=== PATIENT | male | born 1965 | race Hispanic/Latino ===

== ENCOUNTER 2016-12-31 21:29 | Emergency (ER) | payer MEDICARE ==
[2016-12-31 21:39] VITALS: BP 152/105
[2016-12-31 22:03] LABS: Basophils % (Auto) 0.4 % (0.0-1.8); Eosinophils % (Auto) 0.4 % (0.0-4.3); Hematocrit 40.8 % (35.5-45.6); Hemoglobin 13.8 gm/dl (11.8-15.2); Mean Corpuscular HGB Conc 34 % (32-34); Mean Corpuscular Hemoglobin 32 pg (28-32); Mean Corpuscular Volume 95 fl (84-94); Platelet Count 261 K/mm3 (140-440); Red Blood Count 4.31 M/mm3 (3.65-5.03); Red Cell Distribution Width 13.3 % (13.2-15.2); White Blood Count 8.5 K/mm3 (4.5-11.0)
[2016-12-31 22:20] LABS: Anion Gap 17 mmol/L; Blood Urea Nitrogen 12 mg/dL (9-20); Calcium 8.9 mg/dL (8.4-10.2); Carbon Dioxide 26 mmol/L (22-30); Chloride 102.4 mmol/L (98-107); Glucose 106 mg/dL (75-100); Potassium 3.8 mmol/L (3.6-5.0); Sodium 142 mmol/L (137-145)
== END 2016-12-31 22:00 | disposition left against medical advice (07) ==
LOC: ED 21:29
DX: R07.89 Other chest pain (principal); Z53.21 Procedure and treatment not carried out due to patient leaving prior to being seen by health care provider
CPT/HCPCS: 36415; 80048; 84484; 85025; 93005; 93010

== ENCOUNTER 2022-04-13 20:19 | Emergency (ER) | payer MEDICARE ==
[2022-04-13 21:34] LABS: Basophils % (Auto) 0.4 % (0.0-1.8); Eosinophils # (Auto) 0.2 K/mm3 (0.0-0.4); Eosinophils % (Auto) 2.1 % (0.0-4.3); Hematocrit 42.9 % (35.5-45.6); Hemoglobin 14.7 gm/dl (11.8-15.2); Lymphocytes # (Auto) 2.1 K/mm3 (1.2-5.4); Lymphocytes % (Auto) 23.8 % (13.4-35.0); Mean Corpuscular HGB Conc 34 % (32-34); Mean Corpuscular Volume 95 fl (84-94); Monocytes # (Auto) 0.8 K/mm3 (0.0-0.8); Monocytes % (Auto) 8.7 % (0.0-7.3); Platelet Count 254 K/mm3 (140-440); Red Blood Count 4.49 M/mm3 (3.65-5.03); Red Cell Distribution Width 13.3 % (13.2-15.2)
[2022-04-13 21:42] LABS: Blood Urea Nitrogen 10 mg/dL (9-20); Calcium 8.7 mg/dL (8.4-10.2); Hemolysis Index 10
[2022-04-13 21:52] LABS: BUN/Creatinine Ratio 17
--- NOTE | 2022-04-14 04:02 | Emergency Department Report ---
ED Psych HPI - General Chief Complaint: Psych Stated Complaint: MH Time Seen by Provider: 04/14/22 03:59 Source: patient Mode of arrival: Ambulatory - History of Present Illness Initial Comments: I WAS GOING TO COMMIT SUICIDE TONIGHT BUT I CALLED THE POLICE INSTEAD." PT REPORTS PLAN TO TAKE OD OR HANGING HIMSELF, STATES LAST ATTEMPT 5 YEARS AGO. SI+, -HI. STATES HALLUCINATIONS. PT C/A/O, RESP UNLAB, SKIN EXPECTED COLOR WDI, SCARS NOTED TO BILATERAL ARMS. PT AMB INTO TRIAGE MD Complaint: suicidal ideation, feels depressed -: days(s) Associated Psychiatric Symptoms: depression, suicidal ideation History of same: Yes Quality: constant Improves With: none Worsens With: none Context: recent drug abuse Associated Symptoms: denies: denies other symptoms, confusion, headache Treatments Prior to Arrival: placed on mental he If Self Harm: admits thoughts of, has plan - Related Data Allergies Allergy/AdvReac Type Severity Reaction Status Date / Time divalproex sodium Allergy Unknown Verified 04/13/22 21:08 [From [facility]] ED Review of Systems ROS: Stated complaint: MH Other details as noted in HPI Comment: Unobtainable due to pts medical conditions ED Past Medical Hx - Past Medical History Previous Medical History?: Yes Hx Psychiatric Treatment: Yes (bipolar, depression,PTSD) - Surgical History Past Surgical History?: No Additional Surgical History: inflated lung - Social History Smoking Status: Current Every Day Smoker ED Physical Exam - General Limitations: No Limitations General appearance: alert, anxious - Head Head exam: Present: atraumatic, normocephalic - Eye Eye exam: Present: normal appearance - ENT ENT exam: Present: mucous membranes moist - Neck Neck exam: Present: normal inspection - Respiratory Respiratory exam: Present: normal lung sounds bilaterally. Absent: respiratory distress - Cardiovascular Cardiovascular Exam: Present: regular rate, normal rhythm. Absent: systolic murmur, diastolic murmur, rubs, gallop - GI/Abdominal GI/Abdominal exam: Present: soft, normal bowel sounds - Rectal Rectal exam: Present: deferred - Extremities Exam Extremities exam: Present: normal inspection - Back Exam Back exam: Present: normal inspection - Neurological Exam Neurological exam: Present: alert, oriented X3 - Psychiatric Psychiatric exam: Present: depressed, anxious, suicidal ideation - Skin Skin exam: Present: warm, dry, intact, normal color. Absent: rash ED Course Vital Signs 04/13/22 04/14/22 04/14/22 20:51 08:16 14:00 Temperature 97.9 F 97.7 F Pulse Rate 80 58 L 60 Respiratory 18 18 18 Rate Blood Pressure 144/81 Blood Pressure 137/77 141/80 [Left] O2 Sat by Pulse 96 99 Oximetry ED Medical Decision Making - Lab Data Result diagrams: 04/13/22 21:08 04/13/22 21:08 Critical care attestation.: If time is entered above; I have spent that time in minutes in the direct care of this critically ill patient, excluding procedure time. ED Disposition Clinical Impression: Suicidal ideation Disposition: 30 STILL A PATIENT Is pt being admited?: No Does the pt Need Aspirin: No Condition: Stable Additional Instructions: OUTPATIENT MENTAL HEALTH RESOURCES [employer], [facility] Loreta Adams MD: [address] [place] [address] [place] [address] [facility]: [facility] [facility] [address] [place] [address] [place] [address] [phone] [facility]: [facility] Healthcare: [address] [facility] [address] [place] [address] [place] [address] [facility] [id number] [facility]: Dejuan Amin MD: [address] [facility] [id number] [facility]: [address] [place], [place] [id number] [phone] [place] CRISIS AND ACCESS LINE: Referrals: BLANCA VILLARREAL MD [Primary Care Provider] - 3-5 Days
[2022-04-14 04:18] LABS: Bacteria,Urine 1+ /HPF (Negative); Mucus,Urine 3+ /HPF
[2022-04-14 04:23] LABS: Amphetamine Screen,Urine Negative; Benzodiazepines Screen,Urine Negative; Cannabinoid Screen,Urine Negative; Methadone Screen,Urine Negative; Opiate Screen,Urine Negative
[2022-04-14 04:25] LABS: Color,Urine Yellow (Yellow)
[2022-04-14 04:45] LABS: Cocaine Screen,Urine Positive
--- NOTE | 2022-04-14 10:34 | Consultation ---
History of Present Illness - Reason for Consult Consult date: 04/14/22 Reason for consult: SI, drug use - History of Present Psychiatric Illness HPI: I WAS GOING TO COMMIT SUICIDE TONIGHT BUT I CALLED THE POLICE INSTEAD." PT REPORTS PLAN TO TAKE OD OR HANGING HIMSELF, STATES LAST ATTEMPT 5 YEARS AGO. SI+, -HI. STATES HALLUCINATIONS. PT C/A/O, RESP UNLAB, SKIN EXPECTED COLOR WDI, SCARS NOTED TO BILATERAL ARMS. PT AMB INTO TRIAGE The patient was seen today. He is irritable and talking loudly. He says he tried to hang himself. The patient says he needs rehab for crack, cocaine and meth. He says he doesn't want to talk to his family. I ask the patient why, he says "because I just don't." The patient reports being homeless, and feeling hopeless. He says "I'm just tired of everything." He denies hallucinations of any kind. PAST PSYCHIATRIC HISTORY: Diagnoses: Bipolar Disorder, PTSD, Schizoaffective Disorder Suicide attempts or Self-harm behavior: Yes Prior psychiatric hospitalizations: Yes Substance Abuse history: "meth, crack, cocaine" Previous psychiatric medications tried: denies being on any meds Outpatient treatment: Denies PAST MEDICAL HISTORY: None reported Family Psychiatric History: None reported or documented SOCIAL HISTORY Marital Status: Living Arrangements: homeless Employment Status: Unemployed Access to guns/weapons: Denies Education: History of Abuse:Denies Legal History: Denies REVIEW OF SYSTEMS Constitutional: Negative for weight loss ENT: Negative for stridor Respiratory: Negative for cough or hemoptysis All other systems reviewed and are negative MENTAL STATUS EXAMINATION General Appearance and Behavior: Age appropriate, wearing appropriate clothes, cooperative, polite with questioning, good eye contact Cooperation: cooperative Psychomotor Behavior: Psychomotor normal Mood: irritable, depressed Affect and affective range: congruent with stated affect Thought Process: goal directed Thought Content: None Speech: Normal volume, Regular rate and rhythm Suicidal Ideation: Yes Homicidal Ideation: Denies Hallucination: Denies Delusions: None elicited Impulse Control: Impaired Insight and Judgment: Limited Memory: Intact Attention: attentive Orientation: Alert and oriented Diagnoses: Bipolar Disorder Treatment Plan 1013 Lamictal 25mg po BID Risperidone 0.25mg po BID Trazodone 50mg po qhs Medical: Per primary Sitter: defer to primary Disposition: Recommend acute psychiatric inpatient treatment Will follow. Thanks Case staffed with Dr. Cabrera Medications and Allergies Allergies Allergy/AdvReac Type Severity Reaction Status Date / Time divalproex sodium Allergy Unknown Verified 04/13/22 21:08 [From [facility]] Mental Status Exam - Vital signs Last Vital Signs Temp 97.7 F 04/14/22 08:16 Pulse 58 L 04/14/22 08:16 Resp 18 04/14/22 08:16 BP 137/77 04/14/22 08:16 Pulse Ox 96 04/13/22 20:51 Results Result Diagrams: 04/13/22 21:08 04/13/22 21:08 Abnormal lab results 04/13/22 04/13/22 04/13/22 Range/Units 21:08 21:08 21:08 MCV (84-94) fl MCH (28-32) pg Noble % (Auto) (0.0-7.3) % Potassium 3.4 L (3.6-5.0) mmol/L Creatinine 0.6 L (0.8-1.3) mg/dL Glucose 184 H (75-100) mg/dL Salicylates < 0.3 L (2.8-20.0) mg/dL Acetaminophen 5.0 L (10.0-30.0) ug/mL 04/13/22 Range/Units 21:08 MCV 95 H (84-94) fl MCH 33 H (28-32) pg Noble % (Auto) 8.7 H (0.0-7.3) % Potassium (3.6-5.0) mmol/L Creatinine (0.8-1.3) mg/dL Glucose (75-100) mg/dL Salicylates (2.8-20.0) mg/dL Acetaminophen (10.0-30.0) ug/mL All other labs normal.
[2022-04-14] MEDS: lamoTRIgine 25 MG TAB PO SCH ×2 (16:19→22:35)
[2022-04-14] MEDS: risperiDONE 0.25 MG TAB PO SCH ×2 (16:20→22:35)
[2022-04-14] MEDS ORDERED: traZODone 50 MG TAB PO SCH (22:00)
--- NOTE | 2022-04-15 06:54 | Event Note ---
Date: 04/15/22 Patient is a 56-year-old male presenting with suicidal ideations. He is currently on a 1013 psychiatric hold. There were no acute events overnight.
--- NOTE | 2022-04-15 09:37 | Progress Note ---
Subjective - Reason for Consult Consult date: 04/15/22 Reason for consult: depression, substance abuse - Chief Complaint Chief complaint: The patient was seen today. He is asking to be sent to a treatment center. The patient initially says "I don't know" 'when asked about suicidal thoughts. He then says "I'd rather be ." He also says "I don't know" when asked about any hallucinations. The patient says "I just don't feel good at all." REVIEW OF SYSTEMS Constitutional: Negative for weight loss ENT: Negative for stridor Respiratory: Negative for cough or hemoptysis All other systems reviewed and are negative MENTAL STATUS EXAMINATION General Appearance and Behavior: Age appropriate, wearing appropriate clothes, cooperative, polite with questioning, good eye contact Cooperation: cooperative Psychomotor Behavior: Psychomotor normal Mood: irritable, depressed Affect and affective range: congruent with stated affect Thought Process: goal directed Thought Content: None Speech: Normal volume, Regular rate and rhythm Suicidal Ideation: Yes Homicidal Ideation: Denies Hallucination: "I don't know" Delusions: None elicited Impulse Control: Impaired Insight and Judgment: Limited Memory: Intact Attention: attentive Orientation: Alert and oriented Diagnoses: Bipolar Disorder Cocaine Use Disorder Treatment Plan 1013 Lamictal 25mg po BID Start Zoloft 25mg po daily Increase Risperidone 0.5mg po BID Increase Trazodone 75mg po qhs Medical: Per primary Sitter: defer to primary Disposition: Recommend acute psychiatric inpatient treatment Will follow. Thanks Case staffed with Dr. Cabrera Mental Status Exam - Vital signs Last Vital Signs Temp 97.9 F 04/14/22 20:35 Pulse 50 L 04/14/22 20:35 Resp 16 04/14/22 20:35 BP 122/66 04/14/22 20:35 Pulse Ox 94 04/14/22 20:35
[2022-04-15] MEDS: SERTRALINE 25 MG TAB PO SCH (09:52)
[2022-04-15] MEDS: risperiDONE 0.25 MG TAB PO SCH ×2 (09:52→22:00)
[2022-04-15] MEDS: lamoTRIgine 25 MG TAB PO SCH ×2 (09:52→22:00)
[2022-04-15] MEDS: traZODone 50 MG TAB PO SCH (22:00)
--- NOTE | 2022-04-16 06:22 | Event Note ---
Date: 04/16/22 Patient had no acute events overnight. He denies any complaints this morning. He remains on 1013 hold.
--- NOTE | 2022-04-16 09:23 | Progress Note ---
Subjective - Reason for Consult Consult date: 04/16/22 Reason for consult: depression, substance abuse - Chief Complaint Chief complaint: The patient was seen today. He says he feels a little better. The patient says "but I'm still suicidal, and wanted to hand myself." He says he's very depressed. He denies hallucinations. REVIEW OF SYSTEMS Constitutional: Negative for weight loss ENT: Negative for stridor Respiratory: Negative for cough or hemoptysis All other systems reviewed and are negative MENTAL STATUS EXAMINATION General Appearance and Behavior: Age appropriate, wearing appropriate clothes, cooperative, polite with questioning, good eye contact Cooperation: cooperative Psychomotor Behavior: Psychomotor normal Mood: depressed Affect and affective range: congruent with stated affect Thought Process: goal directed Thought Content: hopelessness Speech: Normal volume, Regular rate and rhythm Suicidal Ideation: Yes Homicidal Ideation: Denies Hallucination: "I don't know" Delusions: None elicited Impulse Control: Impaired Insight and Judgment: Limited Memory: Intact Attention: attentive Orientation: Alert and oriented Diagnoses: Bipolar Disorder Cocaine Use Disorder Treatment Plan 1013 Increase Lamictal 50mg po BID Zoloft 25mg po daily Risperidone 0.5mg po BID Trazodone 75mg po qhs Medical: Per primary Sitter: defer to primary Disposition: Recommend acute psychiatric inpatient treatment Will follow. Thanks Case staffed with Dr. Cabrera Mental Status Exam - Vital signs Last Vital Signs Temp 97.4 F L 04/16/22 07:30 Pulse 59 L 04/16/22 07:30 Resp 18 04/16/22 07:30 BP 109/61 04/16/22 07:30 Pulse Ox 96 04/16/22 07:31
[2022-04-16] MEDS: lamoTRIgine 25 MG TAB PO SCH ×2 (10:14→22:00)
[2022-04-16] MEDS: risperiDONE 0.25 MG TAB PO SCH ×2 (10:14→22:00)
[2022-04-16] MEDS: SERTRALINE 25 MG TAB PO SCH (10:14)
[2022-04-16] MEDS: traZODone 50 MG TAB PO SCH (22:00)
[2022-04-17] MEDS: lamoTRIgine 25 MG TAB PO SCH (10:52)
[2022-04-17] MEDS: risperiDONE 0.25 MG TAB PO SCH (10:52)
[2022-04-17] MEDS: SERTRALINE 25 MG TAB PO SCH (10:52)
--- NOTE | 2022-04-17 11:00 | Progress Note ---
Subjective - Reason for Consult Consult date: 04/17/22 Reason for consult: depression - Chief Complaint Chief complaint: The patient was seen today. He still endorses depression and suicidal thoughts. He denies a plan. REVIEW OF SYSTEMS Constitutional: Negative for weight loss ENT: Negative for stridor Respiratory: Negative for cough or hemoptysis All other systems reviewed and are negative MENTAL STATUS EXAMINATION General Appearance and Behavior: Age appropriate, wearing appropriate clothes, cooperative, polite with questioning, good eye contact Cooperation: cooperative Psychomotor Behavior: Psychomotor normal Mood: depressed Affect and affective range: congruent with stated affect Thought Process: goal directed Thought Content: hopelessness Speech: Normal volume, Regular rate and rhythm Suicidal Ideation: Yes Homicidal Ideation: Denies Hallucination: "I don't know" Delusions: None elicited Impulse Control: Impaired Insight and Judgment: Limited Memory: Intact Attention: attentive Orientation: Alert and oriented Diagnoses: Bipolar Disorder Cocaine Use Disorder Treatment Plan 1013 Lamictal 50mg po BID Zoloft 25mg po daily Risperidone 0.5mg po BID Trazodone 75mg po qhs Medical: Per primary Sitter: defer to primary Disposition: Recommend acute psychiatric inpatient treatment Will follow. Thanks Case staffed with Dr. Cabrera Mental Status Exam - Vital signs Last Vital Signs Temp 98.2 F 04/17/22 10:52 Pulse 72 04/17/22 10:52 Resp 13 04/17/22 10:52 BP 159/81 04/17/22 10:52 Pulse Ox 99 04/17/22 10:52
--- NOTE | 2022-04-17 12:04 | Event Note ---
Date: 04/17/22 vss , no events overnight , medically cleared , assessed by psych , awaiting placement
[2022-04-18] MEDS: lamoTRIgine 25 MG TAB PO SCH ×3 (04:38→21:54)
[2022-04-18] MEDS: risperiDONE 0.25 MG TAB PO SCH ×3 (04:38→21:54)
[2022-04-18] MEDS: traZODone 50 MG TAB PO SCH ×2 (04:38→21:54)
[2022-04-18] MEDS: SERTRALINE 25 MG TAB PO SCH (10:28)
--- NOTE | 2022-04-18 10:30 | Progress Note ---
Subjective - Reason for Consult Consult date: 04/18/22 Reason for consult: SI - Chief Complaint Chief complaint: The patient was seen today. He says he's not doing well at all, and states that he "feels the same." He still endorses depression and suicidal thoughts. The patient says he plans to hang himself when he's discharged. REVIEW OF SYSTEMS Constitutional: Negative for weight loss ENT: Negative for stridor Respiratory: Negative for cough or hemoptysis All other systems reviewed and are negative MENTAL STATUS EXAMINATION General Appearance and Behavior: Age appropriate, wearing appropriate clothes, cooperative, polite with questioning, good eye contact Cooperation: cooperative Psychomotor Behavior: Psychomotor normal Mood: depressed Affect and affective range: congruent with stated affect Thought Process: goal directed Thought Content: hopelessness Speech: Normal volume, Regular rate and rhythm Suicidal Ideation: Yes Homicidal Ideation: Denies Hallucination: Denies Delusions: None elicited Impulse Control: Impaired Insight and Judgment: Limited Memory: Intact Attention: attentive Orientation: Alert and oriented Diagnoses: Bipolar Disorder Cocaine Use Disorder Treatment Plan 1013 Start Klonopin 0.5mg po BID Lamictal 50mg po BID Increase Zoloft 50mg po daily Risperidone 0.5mg po BID Trazodone 75mg po qhs Medical: Per primary Sitter: defer to primary Disposition: Recommend acute psychiatric inpatient treatment Will follow. Thanks Case staffed with Dr. Cabrera Mental Status Exam - Vital signs Last Vital Signs Temp 97.5 F L 04/18/22 07:59 Pulse 60 04/18/22 07:59 Resp 18 04/18/22 07:59 BP 114/75 04/18/22 07:59 Pulse Ox 94 04/18/22 07:59
[2022-04-18] MEDS: SERTRALINE 50 MG TAB PO SCH (11:08)
[2022-04-18] MEDS: clonazePAM 0.5 MG TAB PO SCH ×2 (11:10→21:54)
--- NOTE | 2022-04-18 13:30 | Event Note ---
Date: 04/18/22 REMAINS HEMODYNAMICALLY STABLE AND AFEBRILE. PENDING INPATIENT PSYCH PLACEMENT. CONTINUE ALL MEDICATIONS RECOMMENDED BY BEHAVIOR HEALTH.
--- NOTE | 2022-04-19 09:33 | Progress Note ---
Subjective - Reason for Consult Consult date: 04/19/22 Reason for consult: SI - Chief Complaint Chief complaint: The patient was seen today. The patient still endorses severe depression and SI/HI. He says "my plan didn't work so I don't know what I need to do." He denies hallucinations. REVIEW OF SYSTEMS Constitutional: Negative for weight loss ENT: Negative for stridor Respiratory: Negative for cough or hemoptysis All other systems reviewed and are negative MENTAL STATUS EXAMINATION General Appearance and Behavior: Age appropriate, wearing appropriate clothes, cooperative, polite with questioning, good eye contact Cooperation: cooperative Psychomotor Behavior: Psychomotor normal Mood: depressed Affect and affective range: congruent with stated affect Thought Process: goal directed Thought Content: hopelessness Speech: Normal volume, Regular rate and rhythm Suicidal Ideation: Yes Homicidal Ideation: Denies Hallucination: Denies Delusions: None elicited Impulse Control: Impaired Insight and Judgment: Limited Memory: Intact Attention: attentive Orientation: Alert and oriented Diagnoses: Bipolar Disorder Cocaine Use Disorder Treatment Plan 1013 Klonopin 0.5mg po BID Lamictal 50mg po BID Zoloft 50mg po daily Risperidone 0.5mg po BID Trazodone 75mg po qhs Medical: Per primary Sitter: defer to primary Disposition: Recommend acute psychiatric inpatient treatment Will follow. Thanks Case staffed with Dr. Cabrera Mental Status Exam - Vital signs Last Vital Signs Temp 97.8 F 04/18/22 21:53 Pulse 58 L 04/18/22 21:53 Resp 16 04/18/22 21:53 BP 124/74 04/18/22 21:53 Pulse Ox 96 04/18/22 21:53
[2022-04-19] MEDS: lamoTRIgine 25 MG TAB PO SCH ×2 (10:10→21:59)
[2022-04-19] MEDS: clonazePAM 0.5 MG TAB PO SCH ×2 (10:10→21:59)
[2022-04-19] MEDS: risperiDONE 0.25 MG TAB PO SCH ×2 (10:10→21:59)
[2022-04-19] MEDS: SERTRALINE 50 MG TAB PO SCH (10:11)
--- NOTE | 2022-04-19 13:03 | Event Note ---
Date: 04/19/22 S: No events reported overnight O: Vital Signs - 8 hr 04/19/22 04/19/22 11:11 11:12 Temperature 97.5 F L Pulse Rate 61 Respiratory 18 Rate Blood Pressure 107/63 [Left] O2 Sat by Pulse 97 97 Oximetry A: Bipolar disorder, cocaine use disorder P: 1013/awaiting inpatient psych. Patient has been accepted pending transportation
--- NOTE | 2022-04-20 08:11 | Progress Note ---
Subjective - Reason for Consult Consult date: 04/20/22 Reason for consult: SI - Chief Complaint Chief complaint: The patient was seen today. He endorses feeling depressed. He says "I thought I was going somewhere to get help." The patient also endorses suicidal thoughts. He denies homicidal thoughts. When asked about a plan to harm himself, the patient says "I don't have anything to OD on." REVIEW OF SYSTEMS Constitutional: Negative for weight loss ENT: Negative for stridor Respiratory: Negative for cough or hemoptysis All other systems reviewed and are negative MENTAL STATUS EXAMINATION General Appearance and Behavior: Age appropriate, wearing appropriate clothes, cooperative, polite with questioning, good eye contact Cooperation: cooperative Psychomotor Behavior: Psychomotor normal Mood: depressed Affect and affective range: congruent with stated affect Thought Process: goal directed Thought Content: hopelessness Speech: Normal volume, Regular rate and rhythm Suicidal Ideation: Yes Homicidal Ideation: Denies Hallucination: Denies Delusions: None elicited Impulse Control: Impaired Insight and Judgment: Limited Memory: Intact Attention: attentive Orientation: Alert and oriented Diagnoses: Bipolar Disorder Cocaine Use Disorder Treatment Plan 1013 Klonopin 0.5mg po BID Lamictal 50mg po BID Increase Zoloft 100mg po daily Risperidone 0.5mg po BID Trazodone 75mg po qhs Medical: Per primary Sitter: defer to primary Disposition: Recommend acute psychiatric inpatient treatment Will follow. Thanks Case staffed with Dr. Cabrera Mental Status Exam - Vital signs Last Vital Signs Temp 98.4 F 04/19/22 20:18 Pulse 60 04/19/22 20:18 Resp 20 04/19/22 20:18 BP 138/97 04/19/22 20:18 Pulse Ox 94 04/19/22 20:18
[2022-04-20] MEDS: risperiDONE 0.25 MG TAB PO SCH ×2 (09:54→21:36)
[2022-04-20] MEDS: lamoTRIgine 25 MG TAB PO SCH ×2 (09:54→21:36)
[2022-04-20] MEDS: SERTRALINE 100 MG TAB PO SCH (09:54)
[2022-04-20] MEDS: clonazePAM 0.5 MG TAB PO SCH ×2 (09:54→21:36)
--- NOTE | 2022-04-20 13:06 | Event Note ---
Date: 04/20/22 Pt seen today and have no issue overnight. He was seen by the psychiatry team and continue to recommend inpatient treatment and was asked to continue all medication by mental health. Pt is afebrile and denies any other modifying or associated factors.
[2022-04-21] MEDS: clonazePAM 0.5 MG TAB PO SCH ×2 (10:40→22:04)
[2022-04-21] MEDS: lamoTRIgine 25 MG TAB PO SCH ×2 (10:41→22:04)
[2022-04-21] MEDS: risperiDONE 0.25 MG TAB PO SCH ×2 (10:41→22:04)
[2022-04-21] MEDS: SERTRALINE 100 MG TAB PO SCH (10:41)
--- NOTE | 2022-04-21 14:54 | Event Note ---
Date: 04/21/22 Pt seen this morning with no issue overnight by nursing team. Pt is however still waiting for psychiatry team rounding today. No other modifying or associated factors reported.
[2022-04-21] MEDS: traZODone 50 MG TAB PO SCH (22:04)
--- NOTE | 2022-04-22 07:50 | Progress Note ---
Subjective - Reason for Consult Consult date: 04/21/22 Reason for consult: SI - Chief Complaint Chief complaint: 04/21: The patient was seen today. Patient reports history of PTSD and bipolar. Patient reports feeling tired and "I wanted to go to drug rehab," and that "I can't stop," abusing drugs. Patient reports "that's no way to live" and "I'd rather be ." Patient reports previous suicide attempt with "60 xanax" and an attempt to hang himself. Patient attributes these attempts to stress of lifetime of substance abuse. Patient reports if he couldn't make it into a drug rehab "I'd rather hit the ground and be buried and be done with that shit." Patient reports active SI "anyway I can." Patient denies HI AVH at this time. REVIEW OF SYSTEMS Constitutional: Negative for weight loss ENT: Negative for stridor Respiratory: Negative for cough or hemoptysis All other systems reviewed and are negative Mental Status Exam - Vital signs Last Vital Signs Temp 97.6 F 04/21/22 20:34 Pulse 71 04/21/22 20:34 Resp 18 04/21/22 20:34 BP 127/63 04/21/22 20:34 Pulse Ox 97 04/21/22 20:34 - Exam Orientation: time, place, person Affect: depressed, anxious, agitated Mood: hopeless, congruent with affect, sad, anxious Thought Process: Intact, Goal Oriented Perceptions: none Speech: normal rate and pattern Concentration: focused Motor activity: normal Level of consciousness: alert Memory: Intact Interaction: cooperative Assessment and Plan Diagnoses: Bipolar Disorder Cocaine Use Disorder Treatment Plan 1013 Klonopin 0.5mg po BID Lamictal 50mg po BID Increase Zoloft 100mg po daily Risperidone 0.5mg po BID Trazodone 75mg po qhs Medical: Per primary Sitter: defer to primary Disposition: Recommend acute psychiatric inpatient treatment Will follow. Thanks Case staffed with Dr. Cabrera
[2022-04-22] MEDS: risperiDONE 0.25 MG TAB PO SCH ×2 (10:14→22:00)
[2022-04-22] MEDS: SERTRALINE 100 MG TAB PO SCH (10:14)
[2022-04-22] MEDS: lamoTRIgine 25 MG TAB PO SCH ×2 (11:14→22:00)
[2022-04-22] MEDS ORDERED: ACETAMINOPHEN 325 MG TAB PO ONE (12:13)
--- NOTE | 2022-04-22 12:19 | Event Note ---
Date: 04/22/22 vss , medically cleared , no events overnight , assessed by psych , awaiting placement
--- NOTE | 2022-04-22 20:55 | Progress Note ---
Subjective - Reason for Consult Consult date: 04/22/22 Reason for consult: SI w/ plan - Chief Complaint Chief complaint: suicidal ideation Mental Status Exam - Vital signs Last Vital Signs Temp 97.4 F L 04/22/22 20:08 Pulse 52 L 04/22/22 20:08 Resp 16 04/22/22 20:08 BP 120/73 04/22/22 20:08 Pulse Ox 94 04/22/22 20:08 - Exam Narrative exam: 04/22: The patient was seen today. Patient alert and oriented x3 and cooperative during interview. Patient initially denied suicidal ideation, "I'm not suicidal, I want to go home today. Right now." Patient reports "Just let me go, I won't come back, I won't come back nowhere." When patient was informed we were looking for placement, patient reported "If I went home I'd just get high and do my drugs and everything and I'd go right back to where I was." Patient reports poor mood. Patient reports okay sleep and appetite. Orientation: time, place, person Affect: anxious, agitated Mood: congruent with affect, anxious Thought Process: Intact, Goal Oriented Perceptions: none Speech: normal rate and pattern Concentration: focused Motor activity: normal Level of consciousness: alert Memory: Intact Sleep Symptoms: None Interaction: irritable, cooperative Assessment and Plan Bipolar disorder Cocaine use disorder Treatment Plan 1013 Lamictal 50 mg BID Maintain Zoloft 100mg po daily Risperidone 0.5mg po BID Trazodone 75mg po qhs Medical: Per primary Sitter: defer to primary Disposition: Recommend acute psychiatric inpatient treatment Will follow. Thanks Case staffed with Dr. Cabrera - Patient Problems (1) Bipolar disorder Status: Acute (2) Cocaine abuse Status: Acute
[2022-04-22] MEDS: traZODone 50 MG TAB PO SCH (22:00)
[2022-04-23] MEDS: lamoTRIgine 25 MG TAB PO SCH ×2 (10:31→22:06)
[2022-04-23] MEDS: risperiDONE 0.25 MG TAB PO SCH ×2 (10:32→22:06)
[2022-04-23] MEDS: SERTRALINE 100 MG TAB PO SCH (10:32)
--- NOTE | 2022-04-23 15:41 | Emergency Department Report ---
Blank Doc - Documentation Documentation: 56-year-old male who has been here in the emergency department since 04/14/2022 for suicidal ideation placement. Pain stable signs unremarkable. Patient is awaiting placement, still
--- NOTE | 2022-04-23 20:34 | Progress Note ---
Subjective - Reason for Consult Consult date: 04/23/22 Reason for consult: SI w/ plan - Chief Complaint Chief complaint: suicidal ideation Mental Status Exam - Vital signs Last Vital Signs Temp 97.8 F 04/23/22 10:52 Pulse 89 04/23/22 10:52 Resp 18 04/23/22 10:52 BP 113/62 04/23/22 10:52 Pulse Ox 98 04/23/22 10:52 - Exam Narrative exam: 04/23: The patient was seen today. Patient alert and oriented x3 and cooperative but irritable during interview. Patient reports low mood, irritability, and anxiety during interview regarding placement. Patient endorses previous suicide attempts, but denies suicidal ideation at present. Patient denies hallucinations. Patient reports okay sleep and poor appetite. Patient requesting to go to [facility] or [facility]. 04/22: The patient was seen today. Patient alert and oriented x3 and cooperative during interview. Patient initially denied suicidal ideation, "I'm not suicidal, I want to go home today. Right now." Patient reports "Just let me go, I won't come back, I won't come back nowhere." When patient was informed we were looking for placement, patient reported "If I went home I'd just get high and do my drugs and everything and I'd go right back to where I was." Patient reports poor mood. Patient reports okay sleep and appetite. Orientation: time, place, person Affect: agitated Mood: congruent with affect, sad, anxious Thought Process: Intact, Goal Oriented Perceptions: none Speech: normal rate and pattern Concentration: focused Motor activity: normal Level of consciousness: alert Memory: Intact Sleep Symptoms: None Appetite: decreased Interaction: irritable, cooperative Assessment and Plan Bipolar disorder Cocaine use disorder Treatment Plan d/c 1013 Lamictal 50 mg BID Maintain Zoloft 100mg po daily Risperidone 0.5mg po BID Trazodone 75mg po qhs Risks, benefits and alternatives of medications discussed with the patient, questions answered and consent obtained from patient. PSYCHOTHERAPY: Supportive psychotherapy provided MEDICAL: Per primary team DELIRIUM PRECAUTIONS: Please re-orient patient frequently, keep lights on during the day, and minimize benzodiazepines and opiates as these medications could worsen patient's confusion. DISPOSITION: Recommend acute inpatient psychiatric hospitalization at this time. FOLLOW-UP: Will follow Thank you for the consult. Please contact with any questions and/or concerns. Case staffed with Dr. Caro Smith - Patient Problems (1) Bipolar disorder Status: Acute (2) Cocaine abuse Status: Acute
[2022-04-23] MEDS: traZODone 50 MG TAB PO SCH (22:06)
[2022-04-24] MEDS: risperiDONE 0.25 MG TAB PO SCH (09:52)
[2022-04-24] MEDS: lamoTRIgine 25 MG TAB PO SCH (09:52)
[2022-04-24] MEDS: SERTRALINE 100 MG TAB PO SCH (09:53)
--- NOTE | 2022-04-24 15:23 | Progress Note ---
Subjective - Reason for Consult Consult date: 04/24/22 Reason for consult: SI, drug use - Chief Complaint Chief complaint: suicidal ideation Mental Status Exam - Vital signs Last Vital Signs Temp 97.8 F 04/24/22 10:26 Pulse 74 04/24/22 10:26 Resp 18 04/24/22 10:26 BP 116/53 04/24/22 10:26 Pulse Ox 95 04/24/22 10:27 - Exam Narrative exam: 04/24: The patient was seen today. Patient alert and oriented x3 and cooperative but irritable during interview. Patient reports feeling disappointed about not getting into a program. When asked about being provided resources for rehab services, patient did not respond. Patient denies depressed mood or anxiety. Patient denies suicidal ideation at this time. Patient denies homicidal ideation and denies hallucinations. Patient reports okay sleep and okay appetite. 04/23: The patient was seen today. Patient alert and oriented x3 and cooperative but irritable during interview. Patient reports low mood, irritability, and anxiety during interview regarding placement. Patient endorses previous suicide attempts, but denies suicidal ideation at present. Patient denies hallucinati ons. Patient reports okay sleep and poor appetite. Patient requesting to go to [facility] or [facility]. 04/22: The patient was seen today. Patient alert and oriented x3 and cooperative during interview. Patient initially denied suicidal ideation, "I'm not suicidal, I want to go home today. Right now." Patient reports "Just let me go, I won't come back, I won't come back nowhere." When patient was informed we were looking for placement, patient reported "If I went home I'd just get high and do my drugs and everything and I'd go right back to where I was." Patient reports poor mood. Patient reports okay sleep and appetite. 04/21: The patient was seen today. Patient reports history of PTSD and bipolar. Patient reports feeling tired and "I wanted to go to drug rehab," and that "I can't stop," abusing drugs. Patient reports "that's no way to live" and "I'd rather be ." Patient reports previous suicide attempt with "60 xanax" and an attempt to hang himself. Patient attributes these attempts to stress of lifetime of substance abuse. Patient reports if he couldn't make it into a drug rehab "I'd rather hit the ground and be buried and be done with that shit." Patient reports active SI "anyway I can." Patient denies HI AVH at this time. 04/20: The patient was seen today. He endorses feeling depressed. He says "I thought I was going somewhere to get help." The patient also endorses suicidal thoughts. He denies homicidal thoughts. When asked about a plan to harm himself, the patient says "I don't have anything to OD on." 04/19: The patient was seen today. The patient still endorses severe depression and SI/HI. He says "my plan didn't work so I don't know what I need to do." He denies hallucinations. 04/18: The patient was seen today. He says he's not doing well at all, and states that he "feels the same." He still endorses depression and suicidal thoughts. The patient says he plans to hang himself when he's discharged. 04/17: The patient was seen today. He still endorses depression and suicidal thoughts. He denies a plan. 04/16: The patient was seen today. He says he feels a little better. The patient says "but I'm still suicidal, and wanted to hand myself." He says he's very depressed. He denies hallucinations. 04/15: The patient was seen today. He is asking to be sent to a treatment center. The patient initially says "I don't know" 'when asked about suicidal thoughts. He then says "I'd rather be ." He also says "I don't know" when asked about any hallucinations. The patient says "I just don't feel good at all." 04/14: The patient was seen today. He is irritable and talking loudly. He says he tried to hang himself. The patient says he needs rehab for crack, cocaine and meth. He says he doesn't want to talk to his family. I ask the patient why, he says "because I just don't." The patient reports being homeless, and feeling hopeless. He says "I'm just tired of everything." He denies hallucinations of any kind. Orientation: time, place, person Affect: normal Mood: calm Thought Process: Intact Perceptions: none Speech: normal rate and pattern Concentration: focused Motor activity: normal Level of consciousness: alert Memory: Intact Sleep Symptoms: None Interaction: cooperative Assessment and Plan Bipolar disorder Cocaine use disorder Treatment Plan SW to develop safety plan with patient Continue meds: Lamictal 50 mg BID Zoloft 100mg po daily Risperidone 0.5mg po BID Trazodone 75mg po qhs Risks, benefits and alternatives of medications discussed with the patient, questions answered and consent obtained from patient. The patient should be compliant with medications, not to use drugs, and not to drink alcohol. The patient understands that if suicidal ideas, homicidal ideas or any endangering feeling arise, the patient should seek assistance including, but not limited to crisis hotline, and emergency room. PSYCHOTHERAPY: Supportive psychotherapy provided MEDICAL: Per primary team DISPOSITION: Do not recommend acute inpatient psychiatric hospitalization at this time. Mental health baffle installer will provide outpatient psychiatric resources and information on drug rehabilitation programs while patient is here. FOLLOW-UP: Will follow. Thank you for the consult. Please contact with any questions and/or concerns. Case staffed with Dr. Caro Smith - Patient Problems (1) Bipolar disorder Status: Acute (2) Cocaine abuse Status: Acute
[2022-04-25] MEDS: traZODone 50 MG TAB PO SCH (02:11)
[2022-04-25] MEDS: risperiDONE 0.25 MG TAB PO SCH (02:12)
[2022-04-25] MEDS: lamoTRIgine 25 MG TAB PO SCH (02:12)
[2022-04-25 03:07] VITALS: BP 109/63
== END 2022-04-25 09:44 ==
LOC: ED 20:19
DX: R45.851 Suicidal ideations (principal); F32.A Depression, unspecified; Z20.822 Contact with and (suspected) exposure to COVID-19; F17.200 Nicotine dependence, unspecified, uncomplicated; Z91.09 Other allergy status, other than to drugs and biological substances
CPT/HCPCS: 36415; 80048; 80307; 81001; 85025; 99284; U0003; 80320; 99283; G0480